=== PATIENT | female | born 1975 | race Caucasian/White ===

== ENCOUNTER 2016-10-28 10:16 | Emergency (ER) | payer MEDICARE ==
[2016-10-28 10:27] VITALS: BMI 43.9
[2016-10-28 10:28] VITALS: TEMP 98.5
--- NOTE | 2016-10-28 11:14 | EDPRACDOC ---
- General Information Chief Complaint: Wound Stated Complaint: ABSCESS Time Seen by Provider: 10/28/16 11:08 Information Source: Patient Mode of Arrival:: Car Home Medications: Home Medications Lamotrigine [Lamictal] 400 mg PO QAM 02/10/13 Omeprazole [Prilosec] 20 mg PO BID 02/28/13 Ziprasidone HCl [Geodon] 180 mg PO HS 02/28/13 Montelukast Sodium [Singulair] 10 mg PO DAILY 03/27/13 Topiramate [Topamax] 25 mg PO DAILY 01/28/14 Cholecalciferol (Vitamin D3) [Vitamin D] 2,000 unit PO DAILY 03/01/15 Furosemide [Lasix] 20 mg PO DAILY 03/01/15 Lorazepam 2 mg PO BID PRN 07/04/15 Quetiapine Fumarate [Seroquel] 50 - 100 mg PO HS 07/04/15 Cariprazine Hydrochloride [Vraylar] 3 mg PO DAILY 03/24/16 Hydrocodone/Acetaminophen [Lortab 5-325 mg Tablet] 1 each PO Q6-8H #14 tablet Levothyroxine [Synthroid, Levoxyl] 25 mcg PO DAILY 03/24/16 Ondansetron [Zofran Odt] 4 mg PO Q6H PRN #20 tab.rapdis 03/24/16 Dicyclomine HCl 20 mg PO TID PRN 03/26/16 L.acidoph & Paracasei,B.lactis [Probiotic] 1 cap PO DAILY 03/26/16 Meloxicam [Mobic] 15 mg PO DAILY 03/26/16 Oxycodone Immediate Release [Oxycodone Immediate Release (OxyIR)] 5 mg PO Q8H PRN #7 tab 03/26/16 PEG-Electrolytes (Golytely) [Golytely] 4,000 ml PO DIR #1 each 03/26/16 Promethazine [Phenergan] 25 mg PO Q8H PRN #30 tab 03/26/16 Sucralfate [Carafate] 1 gm PO TID 10 Days 03/26/16 Mupirocin Calcium [Bactroban] 30 gm TOP BID #30 cream..g. 10/28/16 Allergies/Adverse Reactions: Allergies Allergy/AdvReac Type Severity Reaction Status Date / Time amoxicillin trihydrate Allergy Hives* Verified 10/28/16 10:26 [From Augmentin] fluoxetine HCl [From Prozac] Allergy Unknown Verified 10/28/16 10:26 potassium clavulanate Allergy Hives* Verified 10/28/16 10:26 [From Augmentin] simvastatin [From Zocor] Allergy Nausea/Vomi Verified 10/28/16 10:26 ting - History of Present Illness Onset: 4 DAYS HPI: PT COMPLAINS OF PAINFUL, SWOLLEN AREA TO THE TOP OF HER HEAD X 4 DAYS, NO FEVER OR CHILLS, NO KNOWN INJURY, PT DENIES ANY OTHER COMPLAINTS. PT STATED TO TRIAGE NURSE THAT SHE WANTED A TEST, PT HAS IUD IN PLACE X 5 YEARS AND HAS NOT HAD A PERIOD SINCE HAVING IUD IN, PT HAS NO RELATED COMPLAINTS. Location: Reports: Head Relevent History Of: Reports: None Prior Abscess: Reports: None Pain: Reports: Mild Quality: Reports: Painful, Red Associated Signs & Symptoms: Denies: Chills, Fever, Proximal Streaking ED Past Medical History - History Reviewed Yes Nurses notes reviewed and agree except as marked - Patient Medical History Neurological History: Reports: Seizures Cardiac History: Reports: Hypercholesterolemia GI/ History: Reports: Gastroesophageal Reflux. Denies: Urinary Tract Infection Psychological History: Reports: Depression, Bipolar Disorder Systemic History: Reports: Hypothyroidism Additional Past Medical History: BIPOLAR D/0 Surgical History: Reports: Tonsillectomy/Adnoidectomy - Family Medical History Reports: Cardiac Disorders - Social Medical History Smoking Status: Never smoker EDM Review of Systems - Review of Systems Constitutional: negative: Chills, Fever Gastrointestinal: negative: Nausea, Vomiting Genitourinary: negative: Dysuria, Frequency Neurological: negative: Dizziness, Headache, Numbness, Weakness Musculoskeletal: No Symptoms Reported Integumentary: Wound - Physical Exam Constitutional: Alert (Awake), No apparent distress Oriented to: Time, Person, Place Last recorded Vital Signs: Last Vital Signs Temp 98.5 F 10/28/16 10:26 Pulse 93 10/28/16 10:26 Resp 18 10/28/16 10:26 BP 145/88 10/28/16 10:26 Pulse Ox 97 10/28/16 10:26 Oxygen Pulse Oxygen Saturation 97 O2 Device Oxygen Flow Rate Fraction of Inspired Oxygen ( FIO2) - HEENT Head: Normal ( normocephalic) - Neurologic Memory Impaired: Normal Motor Function: Normal (Normal tone, Pulses 2+ No cyanosis or edema, FROM) Cranial Nerve: Normal (CN II-X11 intact sensation, strength 5/5) Cerebellar: Normal Mood Description: Normal Perception: Normal ED Abscess/Mass Exam - Integumentary Skin: Warm, Dry Mass: Size (0.2 CM), Tender, Firm. negative: Red, Warm, Fluctuant, Pustule, Pus Drainage Lymphatics: Normal - Differential Diagnosis Abscess, Cellulitis Decision Time to Discharge: 11:15 - Departure Disposition: Home Condition: Stable Final Diagnosis: Folliculitis Instructions: Folliculitis (ED) Education/Counseling Given To: Patient Education/Counseling Given Regarding: Diagnosis, Treatment, Prognosis, Follow Up Referrals: Nakita Isaac MD [Primary Care Provider] - One Week Prescriptions: Mupirocin Calcium [Bactroban] 30 gm TOP BID #30 cream..g. Additional Instructions: APPLY WARM COMPRESSES TO AFFECTED AREA 20 MINS AT A TIME 4 - 5 TIMES DAILY. YOU MAY PURCHASE A TEST AT ANY LOCAL DRUG STORE OR DOLLAR STORE.
[2016-10-28 11:30] VITALS: BP 140/83; PULSE 89
== END 2016-10-28 11:22 | disposition home or self-care (01) ==
LOC: ED 10:16 → EDMC 11:22
DX: L73.9 Follicular disorder, unspecified (principal)
CPT/HCPCS: 99283